=== PATIENT | female | born 1950 | race Caucasian/White ===

== ENCOUNTER 2018-11-17 08:28 | Inpatient (IN) | payer OTHER, MEDICARE ==
[2018-11-17] MEDS ORDERED: MAGNESIUM HYDROXIDE 30 ML UDCUP PO PRN (16:23)
[2018-11-17] MEDS ORDERED: MAG HYDROX/AL HYDROX/SIMETH 30 ML UDCUP PO PRN (16:23)
[2018-11-17] MEDS ORDERED: ACETAMINOPHEN 325 MG TAB PO PRN (16:23)
[2018-11-17] MEDS ORDERED: LORazepam 0.5 MG TAB PO PRN ×2 (16:23→16:35)
[2018-11-17] MEDS ORDERED: ZOLPIDEM TARTRATE 5 MG TAB PO PRN (16:36)
[2018-11-17] MEDS: LATANOPROST 0.005% 2.5 ML OPHT DROPS EACHEYE SCH (21:21)
[2018-11-17] MEDS: LEVOBUNOLOL 0.5% 5 ML OPHT.BTL EACHEYE SCH (21:21)
[2018-11-18 06:46] VITALS: BP 124/66
[2018-11-18] MEDS: LEVOBUNOLOL 0.5% 5 ML OPHT.BTL EACHEYE SCH (08:47)
[2018-11-18] MEDS: LATANOPROST 0.005% 2.5 ML OPHT DROPS EACHEYE SCH ×2 (08:47→08:50)
--- NOTE | 2018-11-18 09:01 | ASMTBHMTP ---
Master Treatment Plan Master Treatment Plan Answers: Depressed Mood with for: Suicidal Ideation Date: 11/18/2018 Diagnosis on Admission: MDD; DARIEN Expected length of stay: 5-7 Reason for admission: Notes: Per the patient and her , Benitez, she was recently discharged from a several day stay at [facility]. They live in [place]. The patient was not satisfied with tx and pursued tx elsewhere. The patient presents with increasing symptoms of anxiety including panic; onset seven-eight weeks ago. A major catalyst includes the patient's mother moving to hospice and nearing . The family suspects the patient's mother will very soon. The patient has visited her mother, said "goodelie," and reports that "she doesn't want anyone around." The patient reported that she experiences "any little thing" as a "crisis" and subsequently has a panic attack. The patient reported using Lorazepam, 4-5mg, daily to manage anxiety without success. Other stressors include broken appliances and disrupted visits from friends. Patient's stated presenting problems: Notes: The patient has a hx of depression; no hx of anxiety. She is "sensitive to medications." The patient is a survivor of breast cancer (11 years). She also has glaucoma; daily eye drops. She has difficulty toileting including IBS: combined presentation as well as sleep disturbances both are currently regulated by medication. 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 She has strong support system of family, peers, and providers. She implements self-soothing techniques including "rocking." She is active: fly fishing, hiking, etc. The patient is intelligent; she holds two master's degrees in education. The patient engages in contemplative practice. Identify supports outside of hospital: Notes: She has strong support system of family, peers, and providers. The patient sees a psychiatrist and therapist in [place], [place]. Discharge criteria: Notes: Patient will demonstrate more stable mood by discharge. Initial disposition plan/considerations: Notes: The patient will return home to her community, routine, and follow up care upon discharge. Master Treatment Plan Required Signatures Psychiatrist signature: Answers: Arya Diaz MD: RN on-shift signature: Answers: RN: Patient signature: Answers: Patient: Date Signed: 11/18/2018 09:00 AM Electronically Signed By:Heather Koch
[2018-11-18] MEDS ORDERED: PSYLLIUM METAMUCIL 1 PKT PO SCH (11:45)
--- NOTE | 2018-11-18 16:04 | PDCONSULT ---
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 Medicine has been consulted to evaluate for any acute underlying medical problems Past medical history History of breast cancer Glaucoma Insomnia Past surgical history Laparoscopic cholecystectomy Tonsillectomy Bilateral mastectomy Social history Denied alcohol tobacco or drugs Family history Noncontributory Allergies Sulfa, BuSpar, iodine Medications Ambien Multivitamin Pristiq Review of systems Ten point review systems is negative Examination Blood pressure is 126/63, heart rate is 68, respirations 18, saturating 90% on room air, temperature is 37 degrees C General 68-year-old female in no acute distress HEENT-PERRLA mucous membranes are moist pink and acyanotic head is atraumatic normocephalic Lungs are clear cough auscultation bilaterally Cardiovascular regular rhythm and rate no murmurs rubs gallops Abdomen nontender nondistended in all 4 quadrants no organomegaly but a bowel sounds positive no guarding or rebound Extremities no clubbing cyanosis edema or calf pain Neuro cranial nerves 2-12 are grossly intact with no focal neurologic deficits Skin no lesions rashes or ecchymosis Assessment plan 68-year-old female admitted for concerns of worsening anxiety which she is struggling to manage in [place] Insomnia-continue Ambien Glaucoma- resume home medication for this
--- NOTE | 2018-11-18 17:43 | BAPA ---
[f rep st] ADMISSION PSYCHIATRIC ASSESSMENT DATE OF SERVICE: 11/18/2018 REASON FOR ADMISSION: Patient is a 68-year-old female with a history of 2 episodes of depression over the past 10 years. She states that she was in her usual state of good mental health off medications until about 5 weeks ago. She states at that time she began to experience intense anxiety and panic attacks and changes in her sleep. She saw her primary care physician who placed her on lorazepam, which she states was initially effective, but she began taking 5-6 mg a day and felt like it was wearing off too quickly. She then saw Dr. Orellana, a psychiatrist in her hometown of [place], who placed her on a low dose of Pristiq. She notes no benefit from this and stated that her anxiety was worsening. She was then referred to the [facility] in [place], [place], where they apparently have a geriatric unit. She was seen by Dr. Sprague there who felt like she was depressed and was suffering from panic attacks. He treated her with the Pristiq and then also tried different things for sleep. These included clonazepam, lorazepam, trazodone, and Ambien. The patient was previously taking Ambien ER 12.5 mg, which she states had been helpful for her for more than 10 years. With the acute stress and anxiety, she noted an erosion of her sleep continuity with an ability to fall asleep, but waking up in the middle of the night and not being able to go back to sleep. She stated that the medicines she was given at [facility] were overly sedating and caused her to have a severe headache. She also stated that the environment there on the geriatric unit was not conducive for her to recuperate as it was primarily a locked dementia unit and she was the only one there who was not demented. Ultimately, she was able to reach out to psychiatric units in the [facility] area and the case was presented to me and I accepted her in transfer for evaluation. Today, the patient states that she feels much better. She states she feels calmer and is not comfortable in this environment either. She states that she would prefer to recuperate at home. She was willing to participate in the initial evaluation, but stated that she did not care to stay longer in the hospital. I reviewed approximately 100 pages of documents from her previous hospitalization and previous laboratory evaluations and Dr. Sprague's evaluation. Some of the things that stood out with that were the fact that she had a TSH that was suppressed at 1.[address] Sprague stated in his note that it was unlikely pharmaceutical sales representative of hyperthyroidism or that it was unlikely the hyperthyroidism was driving her anxiety. It is difficult to tell as the statement in the note actually shows unlikely hyperthyroidism driving and anxiety. Regardless, I believe that this indicates he was not concerned about it. I discussed with the patient and her that certainly if she was hyperthyroid, that this could explain the sudden onset of anxiety and insomnia and is something that he would need to be taken care of. I initially reviewed her genetic testing through [facility] and saw that her MTHFR was intermediate. She had been taking folate supplements and her folate level was normal on testing in [place]. I did think, however, that this might represent an opportunity if she was to take activated L methyl folate. I discussed this with the patient and her as well. We then reviewed her medication treatment history and she states that Effexor had worked well for her in the past, but that a retrial of this at 37.5 mg caused her to have a severe panic attack and acute dystonia. The information from [place] states that this was actually a reaction to Buspar, though neither one of them makes sense for that really. Regardless, she stopped that prior to starting the Pristiq. She cannot recall that she has tried SSRIs, though Dr. Sprague's note states that she has tried SSRIs in the past. The specific agents are not listed. PAST PSYCHIATRIC HISTORY: As above. Patient saw a therapist 11 years ago due to anxiety around the time she was being treated for breast cancer. She also was treated with Lamictal at that time because it was felt like she might be bipolar. She has no other history prior to that, which would have been approximately the age of 57 of any major mood disorders or depression or keiko. 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 She was then placed on Effexor 37.5 and then 75 mg at that time, which she states was helpful and she took this for about a year. She currently sees Dr. Orellana in [place]. The patient denies any history of suicide attempts. The patient denies any suicidality at this time, though did state in [place] that she was having passive thoughts of and dying. PAST MEDICAL HISTORY: Significant for the breast cancer 11 years ago, status post bilateral mastectomy. She also reports bowel problems for the last year off and on with constipation and diarrhea. She states her PCP recommended that she get a colonoscopy to evaluate this, though she has not seen a GI specialist or taken any medications for irritable bowel. 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 She lives in [place] with her of 50 years. She is the oldest of 2 sisters. Her younger sister lives in [place]. Her elderly mother also lives in [place] and is currently in the process of dying. The patient states that this is a big stressor for her as her mother has cut off contact and her is imminent. She also feels guilty as the older sibling that she is not there helping. The patient notes no other specific stresses at this time. SUBSTANCE ABUSE HISTORY: Noncontributory. FAMILY HISTORY: Patient denies any family history of major mental illness including depression or bipolar. ADMISSION LABORATORY: No additional labs were drawn. Labs were reviewed from [facility] and other than the TSH being suppressed, there were no significant abnormalities noted. MENTAL STATUS EXAMINATION: Reveals a small, though healthy-appearing female. She interacts well with the examiner, displaying good eye contact and overall calm and pleasant demeanor. Her affect is restricted, though stable and appropriate. Her mood is described as "not very good." Her thought process is linear and goal directed. Her thought content reveals no evidence of psychosis. She is alert and oriented to person, place, time, and situation. Her sensorium is clear. Her cognition appears completely intact with no evidence of dementia or delirium. She denies any thoughts of suicide, homicide , or violence. Her intellect appears to be average to above average as evidenced by her educational occupational history, fund of knowledge, and vocabulary. Her insight and judgment appear to be good. IMPRESSION: Unspecified anxiety disorder, possible hyperthyroidism, adjustment disorder with stressor of mother's imminent , possible phase of life issue. The patient is pleasant, 68-year-old female who presents at this time with primary symptoms of anxiety. These are seen in the setting of the acute stress of her mother's dying, though she herself does not specifically link the two. Previous treatment with Effexor was effective in other times of depression and stress in her life. She reports this severe reaction to low- dose Effexor that is not familiar to me, but has tolerated the Pristiq. She has also been on a collection of benzodiazepines, all of which have been minimally effective and to which she has become resistant quickly. PLAN: 1. Admit to the [facility] inpatient unit on a voluntary basis. 2. Will discharge patient from the hospital today as this is what she and her preferred to do. She meets no criteria for involuntary hospitalization. I have recommended to her the following: a. That she continue to take the Pristiq 25 mg and consider increasing to 50 mg. b. That she consider restarting the clonazepam that was given to her at [place] at 0.5 to 1 mg at h.s. with or without the Ambien to help with REM suppression and midcycle awakening. I think she could take this safely for 2-3 weeks without becoming physiologically dependent and then have a trial off if her sleep, anxiety and mood are stabilized. c. I strongly recommend that she consider evaluation of her thyroid and check thyroid indices. I offered to do that here, but there was not enough time prior to her discharge and she stated that she would do that at home. d. Consider Deplin L methyl folate as this might make a big difference in her overall mood and anxiety levels. The patient will be discharged with her to return to their home in [place], and I will prepare a letter in order for her to communicate back with her primary psychiatrist, Dr. Orellana. /[id number]/MODL MTDD
--- NOTE | 2018-11-18 19:56 | PDMN ---
Medical Necessity Medical necessity: Pt meets IP criteria per STAFF THERAPIST & MCG B-[id number]; est los >2 mn for eval/tx of major depressive disorder; admit for further monitoring & med management; per order & H&P 11/17/18
[2018-11-18] MEDS ORDERED: LEVOBUNOLOL 0.5% 5 ML OPHT.BTL EACHEYE SCH (21:00)
[2018-11-18] MEDS ORDERED: LATANOPROST 0.005% 2.5 ML OPHT DROPS EACHEYE SCH (21:00)
== END 2018-11-18 15:40 | disposition home or self-care (01) | DRG 880 ==
LOC: BBEH 14:00
PROVIDERS: ADMIT Psychiatry & Neurology Psychiatry; ATTEND Psychiatry & Neurology Psychiatry
DX: F41.9 Anxiety disorder, unspecified (principal); H40.9 Unspecified glaucoma; G47.00 Insomnia, unspecified; E05.90 Thyrotoxicosis, unspecified without thyrotoxic crisis or storm; F43.29 Adjustment disorder with other symptoms; Z85.3 Personal history of malignant neoplasm of breast